=== PATIENT | male | born 1985 | race Caucasian/White ===

== ENCOUNTER 2020-11-02 04:35 | Observation (INO) | payer OTHER ==
[2020-11-02] MEDS ORDERED: Sodium Chloride 0.9% 1,000 ML IV ONE ×2 (04:58→06:50)
[2020-11-02] MEDS ORDERED: Sodium Chloride 0.9% 2.5 ML Syringe FLUSH PRN (04:58)
[2020-11-02] MEDS ORDERED: Sodium Chloride 0.9% 10 ML Syringe FLUSH PRN (04:58)
[2020-11-02] MEDS ORDERED: Pantoprazole 40 MG in Sodium Chloride 0.9% 10 ML IV ONE (04:58)
[2020-11-02] MEDS ORDERED: Ondansetron 4 MG/2 ML SDV IVPUSH ONE (04:58)
[2020-11-02 05:41] LABS: BLOOD UREA NITROGEN,BUN 41 mg/dL (7.0-18.0); CARBON DIOXIDE,CO2 27.1 mmol/L (21.0-32.0); CHLORIDE,CL 103 mmol/L (98-107); GLUCOSE RANDOM 100 mg/dL (74-106); LIPASE 136 U/L (73-393); POTASSIUM,K 3.8 mmol/L (3.5-5.1); SODIUM,NA 138 mmol/L (136-148)
--- NOTE | 2020-11-02 05:41 | CR ---
Indication: GI bleed Technique: Upright PA view of the chest. Upright and supine views of the abdomen Comparison: None Findings: The lungs are clear. There is no sizable pleural effusion or pneumothorax. The cardiomediastinal silhouette is normal. There is no free air under the diaphragm. There are no abnormal distended air-filled small bowel loops. No bowel air-fluid levels are demonstrated on upright view. Interspersed air and fecal material are noted in the colon. The visualized osseous structures are unremarkable. Impression: 1. No acute intrathoracic process. 2. Nonobstructive bowel gas pattern. 3. No pneumoperitoneum. Dictated by Roscoe Fish MD @ Nov 02 2020 5:38AM Signed by Dr. Roscoe Fish @ Nov 02 2020 5:38AM
--- NOTE | 2020-11-02 07:12 | EDM.PDOC ---
ED HPI GENERAL MEDICAL PROBLEM - General Chief Complaint: Abdominal Pain Stated Complaint: VOMITING BLOOD, Time Seen by Provider: 11/02/20 06:50 - History of Present Illness INITIAL COMMENTS - FREE TEXT/NARRATIVE: HISTORY AND PHYSICAL: History of present illness: This is a 35-year-old gentleman with no significant past medical history presents ER today complaining of an episode of dark stool earlier today followed by a significant amount of hematemesis this evening prior to arrival. Patient denies any recent fevers, shakes, chills, diarrhea, dysuria, frequency, urgency. Patient has any chest pain or shortness of breath. Patient denies any dizziness or presyncopal episodes. Patient denies any abdominal discomfort. Patient denies any history of hypertension, diabetes, liver, lung, kidney problems. Patient reports that he has had no abdominal surgeries in the past except for hernia repair as a child. Patient has no known drug allergies. Patient denies any tobacco or drug use but he does admit to daily alcohol use. Patient reports usually drinks 2 beers and a Ellis and Coke each night. Patient denies any other bleeding issues. Patient denies any easy bruising or bleeding from gums. Review of systems: As per history of present illness and below otherwise all systems reviewed and negative. Past medical history: As per history of present illness and as reviewed below otherwise noncontributory. Surgical history: As per history of present illness and as reviewed below otherwise noncontributory. Social history: No reported history of drug or alcohol abuse. Family history: As per history of present illness and as reviewed below otherwise noncontributory. Physical exam: This patient was seen and evaluated during the 2019 SARS-CoV-2 novel coronavirus pandemic period. Community viral transmission is ongoing at time of this encounter and the emergency department is operating under pandemic response procedures. Constitutional: Patient is oriented to person, place, and time. Appears well- developed and well-nourished. No distress. HEENT: Moist mucous membranes Head: Normocephalic and atraumatic, no pallor Eyes: Right eye exhibits no discharge. Left eye exhibits no discharge. No scleral icterus Neck: Normal range of motion. No tracheal deviation present. Cardiovascular: Normal rate and regular rhythm. Tachycardic at the Pulmonary: Effort normal, no respiratory distress. Abd: Soft, nondistended, no rebound/guarding, no psoas or obturator signs, no tenderness at Mcberney's point, no Borrego's sign. Pt does not present with an exam that would be consistent with an acute surgical abdomen at this time, nontender to palpation Musculoskeletal: Normal range of motion Neurologic: Alert and oriented to person, place and time. Skin: [place], warm and dry. Psychiatric: Normal mood and affect. Behavior is normal. Judgment and thought content normal. Nursing note and vital signs have been reviewed Rectal: Heme positive dark stool Diagnostics: Obstruction series: Nonspecific gas pattern, no free air or air-fluid levels as interpreted by ER Dr. Mena CBC/CMP within normal limits. INR normal. Coronavirus test negative Therapeutics: Protonix 40 mg IV NSS wide open x2 L Assessment and plan: This is a 35-year-old gentleman who presents to the ER today secondary to hematemesis and dark stools. On exam patient has heme positive stool and has shown me a picture of his bloody emesis. Patient's labs are all within normal limits. Patient is tachycardic here in the ED despite receiving volume resuscitation with NSS. Patient abdomen is benign and nontender and has not complained of any abdominal discomfort over the last several days. Given his melanotic stool, hematemesis, tachycardia, patient will need to be admitted to the hospital for serial H&H's. I have discussed the case with Dr. Trejo who is agreed to assist us with observation level of care for this patient. I have also discussed the case with Dr. Restrepo who agrees with the plan to admit patient here for further monitoring and possible endoscopy. Definitive disposition and diagnosis as appropriate pending reevaluation and review of above. - Related Data Allergies Allergy/AdvReac Type Severity Reaction Status Date / Time No Known Allergies Allergy Verified 11/02/20 04:48 Home Meds: Home Meds . [No Known Home Meds] 11/02/20 [History] Past Medical History - Past Health History Medical/Surgical History: Denies Medical/Surgical History - Infectious Disease History Infectious Disease History: Reports: Chicken Pox Social & Family History - Family History Family Medical History: No Pertinent Family History ED ROS GENERAL - Review of Systems Review Of Systems: See Below ED EXAM, GENERAL - Physical Exam Exam: See Below Course - Vital Signs Last Recorded V/S: Last Vital Signs Temp 98.3 F 11/02/20 04:35 Pulse 104 H 11/02/20 05:37 Resp 18 11/02/20 05:37 BP 141/96 H 11/02/20 05:37 Pulse Ox 95 11/02/20 05:37 - Orders/Labs/Meds Orders: Active Orders 24 hr Category Date Time Status Patient Status [ADT] Routine ADT 11/02/20 07:06 Ordered UA W/MILAGROS RFLX IF INDICATED [URIN] Stat Lab 11/02/20 04:59 Ordered Sodium Chloride 0.9% [Normal Saline] 1,000 ml Med 11/02/20 06:50 Active IV .Bolus Sodium Chloride 0.9% [Saline Flush] Med 11/02/20 04:58 Active 10 ml FLUSH ASDIRECTED PRN Sodium Chloride 0.9% [Saline Flush] Med 11/02/20 04:58 Active 2.5 ml FLUSH ASDIRECTED PRN Saline Lock Insert [OM.PC] Stat Oth 11/02/20 04:58 Ordered Medication Orders Sodium Chloride (Normal Saline) 1,000 mls @ 999 mls/hr IV .Bolus ONE Stop: 11/02/20 07:50 Sodium Chloride (Sodium Chloride 0.9% 10 Ml Syringe) 10 ml FLUSH ASDIRECTED PRN PRN Reason: Keep Vein Open Last Admin: 11/02/20 05:30 Dose: 10 ml Documented by: [email or web address] Sodium Chloride (Sodium Chloride 0.9% 2.5 Ml Syringe) 2.5 ml FLUSH ASDIRECTED PRN PRN Reason: Keep Vein Open Last Admin: 11/02/20 05:30 Dose: 2.5 ml Documented by: [id number] Labs: Laboratory Tests 11/02/20 11/02/20 11/02/20 Range/Units 04:54 04:54 04:54 WBC 10.71 (4.0-11.0) K/uL RBC 4.31 L (4.50-5.90) M/uL Hgb 13.4 (13.0-17.0) g/dL Hct 40.3 (38.0-50.0) % MCV 93.5 (80.0-98.0) fL MCH 31.1 (27.0-32.0) pg MCHC 33.3 (31.0-37.0) g/dL RDW Std Deviation 44.5 (28.0-62.0) fl RDW Coeff of Tracy 13 (11.0-15.0) % Plt Count 264 (150-400) K/uL MPV 11.30 (7.40-12.00) fL Neut % (Auto) 66.4 (48.0-80.0) % Lymph % (Auto) 23.5 (16.0-40.0) % Darke % (Auto) 6.8 (0.0-15.0) % Eos % (Auto) 2.9 (0.0-7.0) % Baso % (Auto) 0.4 (0.0-1.5) % Neut # (Auto) 7.1 H (1.4-5.7) K/uL Lymph # (Auto) 2.5 H (0.6-2.4) K/uL Darke # (Auto) 0.7 (0.0-0.8) K/uL Eos # (Auto) 0.3 (0.0-0.7) K/uL Baso # (Auto) 0.0 (0.0-0.1) K/uL Nucleated RBC % 0.0 /100WBC Nucleated RBCs # 0 K/uL INR 1.02 APTT 24.2 (18.6-31.3) SEC Sodium 138 (136-148) mmol/L Potassium 3.8 (3.5-5.1) mmol/L Chloride 103 (98-107) mmol/L Carbon Dioxide 27.1 (21.0-32.0) mmol/L BUN 41 H (7.0-18.0) mg/dL Creatinine 1.1 (0.8-1.3) mg/dL Est Cr Clr Drug Dosing 94.62 mL/min Estimated GFR (MDRD) > 60.0 ml/min Glucose 100 (74-106) mg/dL Calcium 9.0 (8.5-10.1) mg/dL Total Bilirubin 0.4 (0.2-1.0) mg/dL AST 24 (15-37) IU/L ALT 73 H (14-63) IU/L Alkaline Phosphatase 70 (46-116) U/L Total Protein 6.5 (6.4-8.2) g/dL Albumin 3.3 L (3.4-5.0) g/dL Globulin 3.2 (2.6-4.0) g/dL Albumin/Globulin Ratio 1.0 (0.9-1.6) Lipase 136 (73-393) U/L Ethyl Alcohol < 3.0 mg/dL SARS-CoV-2 RNA (EMIL) (NEGATIVE) 11/02/20 Range/Units 05:36 WBC (4.0-11.0) K/uL RBC (4.50-5.90) M/uL Hgb (13.0-17.0) g/dL Hct (38.0-50.0) % MCV (80.0-98.0) fL MCH (27.0-32.0) pg MCHC (31.0-37.0) g/dL RDW Std Deviation (28.0-62.0) fl RDW Coeff of Tracy (11.0-15.0) % Plt Count (150-400) K/uL MPV (7.40-12.00) fL Neut % (Auto) (48.0-80.0) % Lymph % (Auto) (16.0-40.0) % Darke % (Auto) (0.0-15.0) % Eos % (Auto) (0.0-7.0) % Baso % (Auto) (0.0-1.5) % Neut # (Auto) (1.4-5.7) K/uL Lymph # (Auto) (0.6-2.4) K/uL Darke # (Auto) (0.0-0.8) K/uL Eos # (Auto) (0.0-0.7) K/uL Baso # (Auto) (0.0-0.1) K/uL Nucleated RBC % /100WBC Nucleated RBCs # K/uL INR APTT (18.6-31.3) SEC Sodium (136-148) mmol/L Potassium (3.5-5.1) mmol/L Chloride (98-107) mmol/L Carbon Dioxide (21.0-32.0) mmol/L BUN (7.0-18.0) mg/dL Creatinine (0.8-1.3) mg/dL Est Cr Clr Drug Dosing mL/min Estimated GFR (MDRD) ml/min Glucose (74-106) mg/dL Calcium (8.5-10.1) mg/dL Total Bilirubin (0.2-1.0) mg/dL AST (15-37) IU/L ALT (14-63) IU/L Alkaline Phosphatase (46-116) U/L Total Protein (6.4-8.2) g/dL Albumin (3.4-5.0) g/dL Globulin (2.6-4.0) g/dL Albumin/Globulin Ratio (0.9-1.6) Lipase (73-393) U/L Ethyl Alcohol mg/dL SARS-CoV-2 RNA (EMIL) NEGATIVE (NEGATIVE) Meds: Medications Generic Name Dose Route Start Last Admin Trade Name Freq PRN Reason Stop Dose Admin Sodium Chloride 1,000 mls @ 999 mls/hr 11/02/20 06:50 Normal Saline IV 11/02/20 07:50 .Bolus ONE Sodium Chloride 10 ml 11/02/20 04:58 11/02/20 05:30 Sodium Chloride 0.9% 10 Ml Syringe FLUSH 10 ml ASDIRECTED PRN Administration Keep Vein Open Sodium Chloride 2.5 ml 11/02/20 04:58 11/02/20 05:30 Sodium Chloride 0.9% 2.5 Ml Syringe FLUSH 2.5 ml ASDIRECTED PRN Administration Keep Vein Open Discontinued Medications Generic Name Dose Route Start Last Admin Trade Name Freq PRN Reason Stop Dose Admin Sodium Chloride 1,000 mls @ 999 mls/hr 11/02/20 04:58 11/02/20 05:30 Normal Saline IV 11/02/20 05:58 999 mls/hr .Bolus ONE Administration Pantoprazole Sodium 40 mg/ 10 mls @ 300 mls/hr 11/02/20 04:58 11/02/20 05:30 Sodium Chloride IV 11/02/20 04:59 300 mls/hr NOW ONE Administration Ondansetron HCl 4 mg 11/02/20 04:58 11/02/20 05:30 Ondansetron 4 Mg/2 Ml Sdv IVPUSH 11/02/20 04:59 4 mg ONETIME ONE Administration Departure - Departure Time of Disposition: 07:12 Disposition: Refer to Observation Condition: Good Clinical Impression: GI bleed Qualifiers: GI bleed type/associated pathology: gastritis Gastritis type: other gastritis Qualified Code(s): K29.61 - Other gastritis with bleeding - Discharge Information Referrals: PCP,None [Primary Care Provider] - Sepsis Event Note (ED) - Evaluation Sepsis Screening Result: No Definite Risk - Focused Exam Vital Signs: Vital Signs Temp Pulse Resp BP Pulse Ox 11/02/20 05:37 104 H 18 141/96 H 95 11/02/20 04:35 98.3 F 120 H 18 170/110 H 96 - My Orders Last 24 Hours: My Active Orders 11/02/20 04:58 Sodium Chloride 0.9% [Saline Flush] 10 ml FLUSH ASDIRECTED PRN Sodium Chloride 0.9% [Saline Flush] 2.5 ml FLUSH ASDIRECTED PRN Saline Lock Insert [OM.PC] Stat 11/02/20 04:59 UA W/MILAGROS RFLX IF INDICATED [URIN] Stat 11/02/20 06:50 Sodium Chloride 0.9% [Normal Saline] 1,000 ml IV .Bolus 11/02/20 07:06 Patient Status [ADT] Routine - Assessment/Plan Last 24 Hours: My Active Orders 11/02/20 04:58 Sodium Chloride 0.9% [Saline Flush] 10 ml FLUSH ASDIRECTED PRN Sodium Chloride 0.9% [Saline Flush] 2.5 ml FLUSH ASDIRECTED PRN Saline Lock Insert [OM.PC] Stat 11/02/20 04:59 UA W/MILAGROS RFLX IF INDICATED [URIN] Stat 11/02/20 06:50 Sodium Chloride 0.9% [Normal Saline] 1,000 ml IV .Bolus 11/02/20 07:06 Patient Status [ADT] Routine
[2020-11-02] MEDS ORDERED: Ondansetron 4 MG/2 ML SDV IVPUSH PRN (08:35)
[2020-11-02] MEDS ORDERED: Albuterol/Ipratropium 3.0-0.5 MG/3 ML Neb Soln NEB PRN (08:35)
--- NOTE | 2020-11-02 08:38 | PCM.HP.2 ---
H&P History of Present Illness - General Date of Service: 11/02/20 Admit Problem/Dx: Admission Diagnosis/Problem Admission Diagnosis/Problem GI bleed not requiring more than 4 units of blood in 24 hours, ICU, or surgery - History of Present Illness Initial Comments - Free Text/Narative: This is a 35-year-old gentleman with no significant past medical history presents ER today complaining of an episode of dark stool yesterday followed by a significant amount of hematemesis last evening prior to arrival. Patient denies any recent fevers, shakes, chills, diarrhea, dysuria, frequency, urgency. Patient has any chest pain or shortness of breath. Patient denies any dizziness or presyncopal episodes. Patient denies any abdominal discomfort. Patient denies any history of hypertension, diabetes, liver, lung, kidney problems. Patient reports that he has had no abdominal surgeries in the past except for inguinal hernia repair as a child. Patient has no known drug allergies. Patient denies any tobacco or drug use but he does admit to daily alcohol use. Patient reports usually drinks 2 beers and a Ellis and Coke each night. Patient denies any other bleeding issues. Patient denies any easy bruising or bleeding from gums. Denied use of NSAIDS. In the ER patient oswald an other episode of hematemesis which was more significant that earlier one. Patient was tachycardic but BP was normal. Patients Hb was stable, he received aggressive IV fluids , IV PPI and was admitted to hospital for further management. - Related Data Allergies/Adverse Reactions: Allergies Allergy/AdvReac Type Severity Reaction Status Date / Time No Known Allergies Allergy Verified 11/02/20 04:48 Home Medications: Home Meds . [No Known Home Meds] 11/02/20 [History] Past Medical History - Past Health History Medical/Surgical History: Denies Medical/Surgical History - Infectious Disease History Infectious Disease History: Reports: Chicken Pox Social & Family History - Family History Family Medical History: No Pertinent Family History H&P Review of Systems - Review of Systems: Review Of Systems: See Below General: Reports: Malaise. Denies: Fever, Chills, Weakness, Fatigue Cardiovascular: Denies: Chest Pain, Palpitations, Dyspnea on Exertion Gastrointestinal: Reports: Black Stool, Bloody Stool, Nausea, Vomiting. Denies: Abdominal Pain, Anorexia, Constipation, Diarrhea, Decreased Appetite Genitourinary: Denies: Dysuria, Frequency Musculoskeletal: Denies: Neck Pain, Shoulder Pain Skin: Denies: Cyanosis, Jaundice, Mottled Psychiatric: Denies: Confusion, Depression, Mood Lability Neurological: Denies: Confusion, Dizziness, Headache Exam - Exam Exam: See Below - Vital Signs Vital Signs: Last Vital Signs Temp 36.8 C 11/02/20 04:35 Pulse 87 11/02/20 08:15 Resp 16 11/02/20 08:15 BP 137/93 H 11/02/20 08:15 Pulse Ox 98 11/02/20 08:15 Weight: 107.501 kg - Exam General: Alert, Oriented, Cooperative Neck: Supple, Trachea Midline Lungs: Clear to Auscultation, Normal Respiratory Effort Cardiovascular: Regular Rate, Regular Rhythm GI/Abdominal Exam: Normal Bowel Sounds, Soft, Non-Tender, No Organomegaly, No Distention. No: Distended, Guarding, Rigid, Hepatomegaly, Splenomegaly - Patient Data Lab Results Last 24 hrs: Laboratory Results - last 24 hr 11/02/20 11/02/20 11/02/20 Range/Units 04:54 04:54 04:54 WBC 10.71 (4.0-11.0) K/uL RBC 4.31 L (4.50-5.90) M/uL Hgb 13.4 (13.0-17.0) g/dL Hct 40.3 (38.0-50.0) % MCV 93.5 (80.0-98.0) fL MCH 31.1 (27.0-32.0) pg MCHC 33.3 (31.0-37.0) g/dL RDW Std Deviation 44.5 (28.0-62.0) fl RDW Coeff of Tracy 13 (11.0-15.0) % Plt Count 264 (150-400) K/uL MPV 11.30 (7.40-12.00) fL Neut % (Auto) 66.4 (48.0-80.0) % Lymph % (Auto) 23.5 (16.0-40.0) % [place] % (Auto) 6.8 (0.0-15.0) % Eos % (Auto) 2.9 (0.0-7.0) % Baso % (Auto) 0.4 (0.0-1.5) % Neut # (Auto) 7.1 H (1.4-5.7) K/uL Lymph # (Auto) 2.5 H (0.6-2.4) K/uL [place] # (Auto) 0.7 (0.0-0.8) K/uL Eos # (Auto) 0.3 (0.0-0.7) K/uL Baso # (Auto) 0.0 (0.0-0.1) K/uL Nucleated RBC % 0.0 /100WBC Nucleated RBCs # 0 K/uL INR 1.02 APTT 24.2 (18.6-31.3) SEC Sodium 138 (136-148) mmol/L Potassium 3.8 (3.5-5.1) mmol/L Chloride 103 (98-107) mmol/L Carbon Dioxide 27.1 (21.0-32.0) mmol/L BUN 41 H (7.0-18.0) mg/dL Creatinine 1.1 (0.8-1.3) mg/dL Est Cr Clr Drug Dosing 94.62 mL/min Estimated GFR (MDRD) > 60.0 ml/min Glucose 100 (74-106) mg/dL Calcium 9.0 (8.5-10.1) mg/dL Total Bilirubin 0.4 (0.2-1.0) mg/dL AST 24 (15-37) IU/L ALT 73 H (14-63) IU/L Alkaline Phosphatase 70 (46-116) U/L Total Protein 6.5 (6.4-8.2) g/dL Albumin 3.3 L (3.4-5.0) g/dL Globulin 3.2 (2.6-4.0) g/dL Albumin/Globulin Ratio 1.0 (0.9-1.6) Lipase 136 (73-393) U/L Ethyl Alcohol < 3.0 mg/dL SARS-CoV-2 RNA (EMIL) (NEGATIVE) 11/02/20 Range/Units 05:36 WBC (4.0-11.0) K/uL RBC (4.50-5.90) M/uL Hgb (13.0-17.0) g/dL Hct (38.0-50.0) % MCV (80.0-98.0) fL MCH (27.0-32.0) pg MCHC (31.0-37.0) g/dL RDW Std Deviation (28.0-62.0) fl RDW Coeff of Tracy (11.0-15.0) % Plt Count (150-400) K/uL MPV (7.40-12.00) fL Neut % (Auto) (48.0-80.0) % Lymph % (Auto) (16.0-40.0) % [place] % (Auto) (0.0-15.0) % Eos % (Auto) (0.0-7.0) % Baso % (Auto) (0.0-1.5) % Neut # (Auto) (1.4-5.7) K/uL Lymph # (Auto) (0.6-2.4) K/uL [place] # (Auto) (0.0-0.8) K/uL Eos # (Auto) (0.0-0.7) K/uL Baso # (Auto) (0.0-0.1) K/uL Nucleated RBC % /100WBC Nucleated RBCs # K/uL INR APTT (18.6-31.3) SEC Sodium (136-148) mmol/L Potassium (3.5-5.1) mmol/L Chloride (98-107) mmol/L Carbon Dioxide (21.0-32.0) mmol/L BUN (7.0-18.0) mg/dL Creatinine (0.8-1.3) mg/dL Est Cr Clr Drug Dosing mL/min Estimated GFR (MDRD) ml/min Glucose (74-106) mg/dL Calcium (8.5-10.1) mg/dL Total Bilirubin (0.2-1.0) mg/dL AST (15-37) IU/L ALT (14-63) IU/L Alkaline Phosphatase (46-116) U/L Total Protein (6.4-8.2) g/dL Albumin (3.4-5.0) g/dL Globulin (2.6-4.0) g/dL Albumin/Globulin Ratio (0.9-1.6) Lipase (73-393) U/L Ethyl Alcohol mg/dL SARS-CoV-2 RNA (EMIL) NEGATIVE (NEGATIVE) Result Diagrams: 11/02/20 04:54 11/02/20 04:54 Sepsis Event Note - Evaluation Sepsis Screening Result: No Definite Risk - Focused Exam Vital Signs: Vital Signs Temp Pulse Resp BP Pulse Ox 11/02/20 08:15 87 16 137/93 H 98 11/02/20 06:30 99 16 151/104 H 92 L 11/02/20 05:37 104 H 18 141/96 H 95 11/02/20 04:35 36.8 C 120 H 18 170/110 H 96 - Problem List (1) GI bleed SNOMED Code(s): 11278290 ICD Code: K92.2 - GASTROINTESTINAL HEMORRHAGE, UNSPECIFIED Status: Acute Current Visit: Yes Qualifiers: GI bleed type/associated pathology: gastritis Gastritis type: other gastritis Qualified Code(s): K29.61 - Other gastritis with bleeding (2) Gastrointestinal hemorrhage with melena SNOMED Code(s): 186921219 ICD Code: K92.1 - MELENA Status: Acute Current Visit: Yes Problem List Initiated/Reviewed/Updated: Yes Orders Last 24hrs: Active Orders 24 hr Category Date Time Status Patient Status [ADT] Routine ADT 11/02/20 07:06 Active Ambulate [RC] ASDIRECTED Care 11/02/20 08:35 Active Antiembolic Devices [RC] PER UNIT ROUTINE Care 11/02/20 08:36 Active Oxygen Therapy [RC] PRN Care 11/02/20 08:35 Active Pulse Oximetry [RC] PRN Care 11/02/20 08:36 Active RT Aerosol Therapy [RC] ASDIRECTED Care 11/02/20 08:37 Active VTE/DVT Education [RC] PER UNIT ROUTINE Care 11/02/20 08:35 Active Vital Signs [RC] Q4H Care 11/02/20 08:35 Active Full Liquid Diet [DIET] Diet 11/02/20 Breakfast Active UA W/MILAGROS RFLX IF INDICATED [URIN] Stat Lab 11/02/20 04:59 Ordered Albuterol/Ipratropium [DuoNeb 3.0-0.5 MG/3 ML] Med 11/02/20 08:35 Ordered 3 ml NEB Q4HRRT PRN Lactated Ringers @ 125 MLS/HR(1000ml) Med 11/02/20 08:45 Ordered Lactated Ringers [Ringers, Lactated] 1,000 ml IV ASDIRECTED Ondansetron [Zofran] Med 11/02/20 08:35 Ordered 4 mg IVPUSH Q4H PRN Pantoprazole [ProTONIX IV] Med 11/02/20 09:00 Ordered 40 mg IV Q12HR Sodium Chloride 0.9% [Saline Flush] Med 11/02/20 04:58 Active 10 ml FLUSH ASDIRECTED PRN Sodium Chloride 0.9% [Saline Flush] Med 11/02/20 04:58 Active 2.5 ml FLUSH ASDIRECTED PRN Saline Lock Insert [OM.PC] Stat Oth 11/02/20 04:58 Ordered Sequential Compression Device [OM.PC] Per Unit Routine Oth 11/02/20 08:36 Or dered Resuscitation Status Routine Resus Stat 11/02/20 08:35 Ordered Medication Orders Sodium Chloride (Sodium Chloride 0.9% 10 Ml Syringe) 10 ml FLUSH ASDIRECTED PRN PRN Reason: Keep Vein Open Last Admin: 11/02/20 05:30 Dose: 10 ml Documented by: RYAN Sodium Chloride (Sodium Chloride 0.9% 2.5 Ml Syringe) 2.5 ml FLUSH ASDIRECTED PRN PRN Reason: Keep Vein Open Last Admin: 11/02/20 05:30 Dose: 2.5 ml Documented by: RYAN Assessment/Plan Comment:: 35 y/o M admitted for GI bleeding Possible gastritis vs ulcer Surgery on board for EGD in AM Full Liquid diet for now, NPO Past midnight IV PPI BID Sucralfate Tylenol for pain IV Zofran for nausea IV fluids LR @ 125 cc/hr, tachycardia has resolved Ativan per CIWA as patient is a daily drinker
[2020-11-02] MEDS ORDERED: Pantoprazole 40 MG Vial IV SCH (09:00)
[2020-11-02] MEDS: Sucralfate Suspension 1 GM/10 ML Cup PO SCH ×3 (09:37→20:19)
[2020-11-02] MEDS: Lactated Ringers 1,000 ML IV SCH ×2 (09:37→17:20)
--- NOTE | 2020-11-02 10:08 | PCM.PREANE ---
Preanesthetic Assessment - Anesthesia/Transfusion/Family Hx Anesthesia History: Prior Anesthesia Without Reaction (Bilateral hernia repair at age 7.) Family History of Anesthesia Reaction: No Transfusion History: No Prior Transfusion(s) - Review of Systems General: No Symptoms Pulmonary: No Symptoms Cardiovascular: No Symptoms Gastrointestinal: Other (GI blleding with black stools) Neurological: No Symptoms Other: Reports: None - Physical Assessment Vital Signs: Last Vital Signs Temp 36.0 C L 11/02/20 08:55 Pulse 99 11/02/20 08:55 Resp 18 11/02/20 08:55 BP 130/89 11/02/20 08:55 Pulse Ox 96 11/02/20 08:55 Height: 1.75 m Weight: 107.501 kg ASA Class: 2 - Lab Values: Laboratory Last Values WBC 10.71 K/uL (4.0-11.0) 11/02/20 04:54 RBC 4.31 M/uL (4.50-5.90) L 11/02/20 04:54 Hgb 13.4 g/dL (13.0-17.0) 11/02/20 04:54 Hct 40.3 % (38.0-50.0) 11/02/20 04:54 MCV 93.5 fL (80.0-98.0) 11/02/20 04:54 MCH 31.1 pg (27.0-32.0) 11/02/20 04:54 MCHC 33.3 g/dL (31.0-37.0) 11/02/20 04:54 RDW Std Deviation 44.5 fl (28.0-62.0) 11/02/20 04:54 RDW Coeff of Tracy 13 % (11.0-15.0) 11/02/20 04:54 Plt Count 264 K/uL (150-400) 11/02/20 04:54 MPV 11.30 fL (7.40-12.00) 11/02/20 04:54 Neut % (Auto) 66.4 % (48.0-80.0) 11/02/20 04:54 Lymph % (Auto) 23.5 % (16.0-40.0) 11/02/20 04:54 [place] % (Auto) 6.8 % (0.0-15.0) 11/02/20 04:54 Eos % (Auto) 2.9 % (0.0-7.0) 11/02/20 04:54 Baso % (Auto) 0.4 % (0.0-1.5) 11/02/20 04:54 Neut # (Auto) 7.1 K/uL (1.4-5.7) H 11/02/20 04:54 Lymph # (Auto) 2.5 K/uL (0.6-2.4) H 11/02/20 04:54 [place] # (Auto) 0.7 K/uL (0.0-0.8) 11/02/20 04:54 Eos # (Auto) 0.3 K/uL (0.0-0.7) 11/02/20 04:54 Baso # (Auto) 0.0 K/uL (0.0-0.1) 11/02/20 04:54 Nucleated RBC % 0.0 /100WBC 11/02/20 04:54 Nucleated RBCs # 0 K/uL 11/02/20 04:54 INR 1.02 11/02/20 04:54 APTT 24.2 SEC (18.6-31.3) 11/02/20 04:54 Sodium 138 mmol/L (136-148) 11/02/20 04:54 Potassium 3.8 mmol/L (3.5-5.1) 11/02/20 04:54 Chloride 103 mmol/L (98-107) 11/02/20 04:54 Carbon Dioxide 27.1 mmol/L (21.0-32.0) 11/02/20 04:54 BUN 41 mg/dL (7.0-18.0) H 11/02/20 04:54 Creatinine 1.1 mg/dL (0.8-1.3) 11/02/20 04:54 Est Cr Clr Drug Dosing 94.62 mL/min 11/02/20 04:54 Estimated GFR (MDRD) > 60.0 ml/min 11/02/20 04:54 Glucose 100 mg/dL (74-106) 11/02/20 04:54 Calcium 9.0 mg/dL (8.5-10.1) 11/02/20 04:54 Total Bilirubin 0.4 mg/dL (0.2-1.0) 11/02/20 04:54 AST 24 IU/L (15-37) 11/02/20 04:54 ALT 73 IU/L (14-63) H 11/02/20 04:54 Alkaline Phosphatase 70 U/L (46-116) 11/02/20 04:54 Total Protein 6.5 g/dL (6.4-8.2) 11/02/20 04:54 Albumin 3.3 g/dL (3.4-5.0) L 11/02/20 04:54 Globulin 3.2 g/dL (2.6-4.0) 11/02/20 04:54 Albumin/Globulin Ratio 1.0 (0.9-1.6) 11/02/20 04:54 Lipase 136 U/L (73-393) 11/02/20 04:54 Ethyl Alcohol < 3.0 mg/dL 11/02/20 04:54 SARS-CoV-2 RNA (EMIL) NEGATIVE (NEGATIVE) 11/02/20 05:36 - Allergies Allergies/Adverse Reactions: Allergies Allergy/AdvReac Type Severity Reaction Status Date / Time No Known Allergies Allergy Verified 11/02/20 04:48 - Acknowledgements Anesthesia Type Planned: General Anesthesia Pt an Appropriate Candidate for the Planned Anesthesia: Yes Alternatives and Risks of Anesthesia Discussed w Pt/Guardian: Yes Pt/Guardian Understands and Agrees with Anesthesia Plan: Yes PreAnesthesia Questionnaire - Past Health History Medical/Surgical History: Denies Medical/Surgical History - Infectious Disease History Infectious Disease History: Reports: Chicken Pox - SUBSTANCE USE Tobacco Use Within Last Twelve Months: No - HOME MEDS Home Medications: Home Meds . [No Known Home Meds] 11/02/20 [History] - CURRENT (IN HOUSE) MEDS Current Meds: Current Medications Albuterol/Ipratropium (Albuterol/Ipratropium 3.0-0.5 Mg/3 Ml Neb Soln) 3 ml NEB Q4HRRT PRN PRN Reason: Shortness Of Breath/wheezing Lactated Ringer's (Ringers, Lactated) 1,000 mls @ 125 mls/hr IV Q8H JENNIFER Last Admin: 11/02/20 09:37 Dose: 125 mls/hr Documented by: Pantoprazole Sodium 40 mg/ (Sodium Chloride) 10 mls @ 200 mls/hr IV Q12H JENNIFER Ondansetron HCl (Ondansetron 4 Mg/2 Ml Sdv) 4 mg IVPUSH Q4H PRN PRN Reason: Nausea/Vomiting Sodium Chloride (Sodium Chloride 0.9% 10 Ml Syringe) 10 ml FLUSH ASDIRECTED PRN PRN Reason: Keep Vein Open Last Admin: 11/02/20 05:30 Dose: 10 ml Documented by: Sodium Chloride (Sodium Chloride 0.9% 2.5 Ml Syringe) 2.5 ml FLUSH ASDIRECTED PRN PRN Reason: Keep Vein Open Last Admin: 11/02/20 05:30 Dose: 2.5 ml Documented by: Sucralfate (Sucralfate Suspension 1 Gm/10 Ml Cup) 1 gm PO Q6H [facility] Last Admin: 11/02/20 09:37 Dose: 1 gm Documented by: Discontinued Medications Sodium Chloride (Normal Saline) 1,000 mls @ 999 mls/hr IV .Bolus ONE Stop: 11/02/20 05:58 Last Admin: 11/02/20 05:30 Dose: 999 mls/hr Documented by: Pantoprazole Sodium 40 mg/ (Sodium Chloride) 10 mls @ 300 mls/hr IV NOW ONE Stop: 11/02/20 04:59 Last Admin: 11/02/20 05:30 Dose: 300 mls/hr Documented by: Sodium Chloride (Normal Saline) 1,000 mls @ 999 mls/hr IV .Bolus ONE Stop: 11/02/20 07:50 Last Admin: 11/02/20 07:11 Dose: 999 mls/hr Documented by: Ondansetron HCl (Ondansetron 4 Mg/2 Ml Sdv) 4 mg IVPUSH ONETIME ONE Stop: 11/02/20 04:59 Last Admin: 11/02/20 05:30 Dose: 4 mg Documented by:
--- NOTE | 2020-11-02 11:11 | PCM.CONS ---
H&P History of Present Illness - General Date of Service: 11/02/20 Admit Problem/Dx: Admission Diagnosis/Problem Admission Diagnosis/Problem GI bleed not requiring more than 4 units of blood in 24 hours, ICU, or surgery Source of Information: Patient, Family History Limitations: Reports: No Limitations - History of Present Illness Initial Comments - Free Text/Narative: Patient is a 35-year-old gentleman who presented to the emergency room earlier today complaining of dark tarry stools and at least one episode of maroon emesis. He denies any fever or chills. This started yesterday. No unexplained weight loss. No prior history of peptic ulcer disease. Patient denies any food intolerances. Duration of Symptoms: Reports: Hour(s): Location: Reports: Abdomen Quality: Reports: Other (hematemesis and melena) Severity: Mild Improves with: Reports: None Worsens with: Reports: None Associated Symptoms: Reports: Nausea/Vomiting, Other (Melanotic stools) - Related Data Allergies/Adverse Reactions: Allergies Allergy/AdvReac Type Severity Reaction Status Date / Time No Known Allergies Allergy Verified 11/02/20 04:48 Home Medications: Home Meds . [No Known Home Meds] 11/02/20 [History] Past Medical History - Past Health History Medical/Surgical History: Denies Medical/Surgical History - Infectious Disease History Infectious Disease History: Reports: Chicken Pox - Past Surgical History GI Surgical History: Reports: Hernia, Inguinal (Bilateral) Social & Family History - Family History Family Medical History: No Pertinent Family History - Tobacco Use Tobacco Use Status *Q: Never Tobacco User - Alcohol Use Alcohol Use History: Yes Number of Drinks Per Day: 2 H&P Review of Systems - Review of Systems: Review Of Systems: See Below General: Denies: Fever, Chills, Malaise, Weakness, Fatigue, Decreased Appetite, Weight Loss HEENT: Reports: No Symptoms Pulmonary: Denies: Shortness of Breath, Wheezing Cardiovascular: Denies: Chest Pain, Palpitations Gastrointestinal: Reports: Black Stool, Hematemesis. Denies: Abdominal Pain, Anorexia, Constipation, Diarrhea, Decreased Appetite Genitourinary: Denies: Dysuria, Frequency, Burning, Pain, Urgency Musculoskeletal: Reports: No Symptoms Skin: Denies: Cyanosis, Jaundice, Mottled, Pallor, Diaphoresis Psychiatric: Denies: Confusion, Depression, Anxiety Neurological: Reports: No Symptoms Hematologic/Lymphatic: Denies: Anemia, Easy Bleeding Immunologic: Reports: No Symptoms Exam - Exam Exam: See Below - Vital Signs Vital Signs: Last Vital Signs Temp 96.8 F L 11/02/20 08:55 Pulse 99 11/02/20 08:55 Resp 18 11/02/20 08:55 BP 130/89 11/02/20 08:55 Pulse Ox 96 11/02/20 08:55 Weight: 237 lb - Exam Quality Assessment: No: Supplemental Oxygen, Central Line/PICC, Urinary Catheter General: Alert, Oriented, Cooperative HEENT: Conjunctiva Clear, Nares Patent, Pupils Equal, Pupils Reactive. No: Scleral Icterus Neck: Supple, Trachea Midline Lungs: Clear to Auscultation, Normal Respiratory Effort Cardiovascular: Regular Rate, Regular Rhythm, Normal S1, Normal S2, Tachycardia. No: Systolic Murmur, Diastolic Murmur GI/Abdominal Exam: Normal Bowel Sounds, Soft, Non-Tender, No Organomegaly Rectal (Males) Exam: Deferred (Done by emergency room staff), Heme + Stool Back Exam: Normal Inspection Extremities: Normal Inspection, Normal Range of Motion Peripheral Pulses: 4+: Posterior Tibial (L), Posterior Tibial (R), Dorsalis Pedis (L), Dorsalis Pedis (R) Skin: Warm, Dry, Intact Neurological: Cranial Nerves Intact Neuro Extensive - Mental Status: Alert, Oriented x3, Normal Mood/Affect Psychiatric: Alert, Normal Affect, Normal Mood - Patient Data Lab Results Last 24 hrs: Laboratory Results - last 24 hr 11/02/20 11/02/20 11/02/20 Range/Units 04:54 04:54 04:54 WBC 10.71 (4.0-11.0) K/uL RBC 4.31 L (4.50-5.90) M/uL Hgb 13.4 (13.0-17.0) g/dL Hct 40.3 (38.0-50.0) % MCV 93.5 (80.0-98.0) fL MCH 31.1 (27.0-32.0) pg MCHC 33.3 (31.0-37.0) g/dL RDW Std Deviation 44.5 (28.0-62.0) fl RDW Coeff of [place] 13 (11.0-15.0) % Plt Count 264 (150-400) K/uL MPV 11.30 (7.40-12.00) fL Neut % (Auto) 66.4 (48.0-80.0) % Lymph % (Auto) 23.5 (16.0-40.0) % [place] % (Auto) 6.8 (0.0-15.0) % Eos % (Auto) 2.9 (0.0-7.0) % Baso % (Auto) 0.4 (0.0-1.5) % Neut # (Auto) 7.1 H (1.4-5.7) K/uL Lymph # (Auto) 2.5 H (0.6-2.4) K/uL [place] # (Auto) 0.7 (0.0-0.8) K/uL Eos # (Auto) 0.3 (0.0-0.7) K/uL Baso # (Auto) 0.0 (0.0-0.1) K/uL Nucleated RBC % 0.0 /100WBC Nucleated RBCs # 0 K/uL INR 1.02 APTT 24.2 (18.6-31.3) SEC Sodium 138 (136-148) mmol/L Potassium 3.8 (3.5-5.1) mmol/L Chloride 103 (98-107) mmol/L Carbon Dioxide 27.1 (21.0-32.0) mmol/L BUN 41 H (7.0-18.0) mg/dL Creatinine 1.1 (0.8-1.3) mg/dL Est Cr Clr Drug Dosing 94.62 mL/min Estimated GFR (MDRD) > 60.0 ml/min Glucose 100 (74-106) mg/dL Calcium 9.0 (8.5-10.1) mg/dL Total Bilirubin 0.4 (0.2-1.0) mg/dL AST 24 (15-37) IU/L ALT 73 H (14-63) IU/L Alkaline Phosphatase 70 (46-116) U/L Total Protein 6.5 (6.4-8.2) g/dL Albumin 3.3 L (3.4-5.0) g/dL Globulin 3.2 (2.6-4.0) g/dL Albumin/Globulin Ratio 1.0 (0.9-1.6) Lipase 136 (73-393) U/L Urine Color Urine Appearance Urine pH (5.0-8.0) Ur Specific [place] (1.001-1.035) Urine Protein (NEGATIVE) mg/dL Urine Glucose (UA) (NEGATIVE) mg/dL Urine Ketones (NEGATIVE) mg/dL Urine Occult Blood (NEGATIVE) Urine Nitrite (NEGATIVE) Urine Bilirubin (NEGATIVE) Urine Urobilinogen (<2.0) EU/dL Ur Leukocyte Esterase (NEGATIVE) Ethyl Alcohol < 3.0 mg/dL SARS-CoV-2 RNA (EMIL) (NEGATIVE) 11/02/20 11/02/20 Range/Units 05:36 09:45 WBC (4.0-11.0) K/uL RBC (4.50-5.90) M/uL Hgb (13.0-17.0) g/dL Hct (38.0-50.0) % MCV (80.0-98.0) fL MCH (27.0-32.0) pg MCHC (31.0-37.0) g/dL RDW Std Deviation (28.0-62.0) fl RDW Coeff of [place] (11.0-15.0) % Plt Count (150-400) K/uL MPV (7.40-12.00) fL Neut % (Auto) (48.0-80.0) % Lymph % (Auto) (16.0-40.0) % [place] % (Auto) (0.0-15.0) % Eos % (Auto) (0.0-7.0) % Baso % (Auto) (0.0-1.5) % Neut # (Auto) (1.4-5.7) K/uL Lymph # (Auto) (0.6-2.4) K/uL [place] # (Auto) (0.0-0.8) K/uL Eos # (Auto) (0.0-0.7) K/uL Baso # (Auto) (0.0-0.1) K/uL Nucleated RBC % /100WBC Nucleated RBCs # K/uL INR APTT (18.6-31.3) SEC Sodium (136-148) mmol/L Potassium (3.5-5.1) mmol/L Chloride (98-107) mmol/L Carbon Dioxide (21.0-32.0) mmol/L BUN (7.0-18.0) mg/dL Creatinine (0.8-1.3) mg/dL Est Cr Clr Drug Dosing mL/min Estimated GFR (MDRD) ml/min Glucose (74-106) mg/dL Calcium (8.5-10.1) mg/dL Total Bilirubin (0.2-1.0) mg/dL AST (15-37) IU/L ALT (14-63) IU/L Alkaline Phosphatase (46-116) U/L Total Protein (6.4-8.2) g/dL Albumin (3.4-5.0) g/dL Globulin (2.6-4.0) g/dL Albumin/Globulin Ratio (0.9-1.6) Lipase (73-393) U/L Urine Color YELLOW Urine Appearance CLEAR Urine pH 6.0 (5.0-8.0) Ur Specific [place] 1.010 (1.001-1.035) Urine Protein NEGATIVE (NEGATIVE) mg/dL Urine Glucose (UA) NEGATIVE (NEGATIVE) mg/dL Urine Ketones NEGATIVE (NEGATIVE) mg/dL Urine Occult Blood NEGATIVE (NEGATIVE) Urine Nitrite NEGATIVE (NEGATIVE) Urine Bilirubin NEGATIVE (NEGATIVE) Urine Urobilinogen 0.2 (<2.0) EU/dL Ur Leukocyte Esterase NEGATIVE (NEGATIVE) Ethyl Alcohol mg/dL SARS-CoV-2 RNA (EMIL) NEGATIVE (NEGATIVE) Result Diagrams: 11/02/20 04:54 11/02/20 04:54 Sepsis Event Note - Evaluation Sepsis Screening Result: No Definite Risk - Focused Exam Vital Signs: Vital Signs Temp Pulse Resp BP Pulse Ox 11/02/20 08:55 96.8 F L 99 18 130/89 96 11/02/20 08:15 87 16 137/93 H 98 11/02/20 06:30 99 16 151/104 H 92 L 11/02/20 05:37 104 H 18 141/96 H 95 11/02/20 04:35 98.3 F 120 H 18 170/110 H 96 Consult PN Assessment/Plan (1) GI bleed SNOMED Code(s): 53260723 Code(s): K92.2 - GASTROINTESTINAL HEMORRHAGE, UNSPECIFIED Current Visit: Yes Qualifiers: GI bleed type/associated pathology: gastritis Gastritis type: other gastritis Qualified Code(s): K29.61 - Other gastritis with bleeding Problem List Initiated/Reviewed/Updated: Yes Plan: Esophagogastroduodenoscopy with biopsy. The operative procedure, along with the risks, including, but not limited to, bleeding, perforation, and the need for surgery were discussed with the patient who voices understanding, offers no questions and wishes to proceed.this will be scheduled for tomorrow, 11/03. Patient will be made nothing by mouth after midnight tonight.
[2020-11-02] MEDS ORDERED: LORazepam 2 MG/ML SDV IVPUSH PRN (13:38)
[2020-11-02] MEDS: Acetaminophen 325 MG Tab PO PRN ×2 (14:02→21:35)
[2020-11-02] MEDS: Pantoprazole 40 MG in Sodium Chloride 0.9% 10 ML IV SCH (17:21)
[2020-11-02] MEDS: amLODIPine 5 MG Tab PO SCH (20:19)
[2020-11-03] MEDS: Lactated Ringers 1,000 ML IV SCH ×2 (01:02→10:20)
[2020-11-03] MEDS: Sucralfate Suspension 1 GM/10 ML Cup PO SCH ×2 (03:07→08:47)
[2020-11-03] MEDS: Pantoprazole 40 MG in Sodium Chloride 0.9% 10 ML IV SCH (05:47)
[2020-11-03 06:40] LABS: BLOOD UREA NITROGEN,BUN 29 mg/dL (7.0-18.0); CARBON DIOXIDE,CO2 30.4 mmol/L (21.0-32.0); CHLORIDE,CL 106 mmol/L (98-107); GLUCOSE RANDOM 102 mg/dL (74-106); SODIUM,NA 140 mmol/L (136-148)
[2020-11-03] MEDS ORDERED: Propofol 200 MG/20 ML SDV ONE (07:00)
[2020-11-03] MEDS ORDERED: fentaNYL 100 MCG/2 ML SDV ONE (07:00)
--- NOTE | 2020-11-03 08:06 | PCM.OPNOTE ---
- General Post-Op/Procedure Note Date of Surgery/Procedure: 11/03/20 Operative Procedure(s): Esophagogastroduodenoscopy with antral biopsy Pre Op Diagnosis: Upper GI bleed with progressive anemia Post-Op Diagnosis: Distal esophageal ulcer that is not acutely bleeding. There is blood and clot in the stomach and duodenum. Anesthesia Technique: MAC (ASA IE) Primary Surgeon: Addi Restrepo Banking Specialist: Jasmine Justice Condition: Good Free Text/Narrative:: Intake & Output 11/02/20 11/03/20 11/03/20 19:59 03:59 11:59 Intake Total 1457 690 Output Total 350 980 Balance 1107 -290 DICTATION [id number] CPT CODE 60062
--- NOTE | 2020-11-03 08:07 | PCM.SN.2 ---
- Free Text/Narrative Note: Patient has what appears to be a distal esophageal ulcer. There does not appear to be any acute bleeding at the present time. Clot was noted in the proximal stomach. I was able to move this around and see that there was no ulcer underneath this. I think the patient would benefit from a longer stay in the hospital and recheck his hemoglobin this afternoon. Additionally, would consider adding a liquid antacid to the current treatment regimen. When the patient is discharged, I will need to see him back next week to discuss the pathology report from his antral biopsies.
[2020-11-03] MEDS ORDERED: Lactated Ringers 1,000 ML IV SCH (08:15)
--- NOTE | 2020-11-03 08:20 | PCM48HPAN ---
Post Anesthesia Note - EVALUATION WITHIN 48HRS OF ANESTHETIC Vital Signs in Normal Range: Yes Patient Participated in Evaluation: Yes Respiratory Function Stable: Yes Airway Patent: Yes Cardiovascular Function Stable: Yes Hydration Status Stable: Yes Pain Control Satisfactory: Yes Nausea and Vomiting Control Satisfactory: Yes Mental Status Recovered: Yes Vital Signs: Last Vital Signs Temp 98.1 F 11/03/20 04:00 Pulse 106 H 11/03/20 08:08 Resp 14 11/03/20 08:08 BP 108/81 11/03/20 08:08 Pulse Ox 96 11/03/20 08:08
--- NOTE | 2020-11-03 08:22 | PCM.POSTAN ---
POST ANESTHESIA ASSESSMENT - MENTAL STATUS Mental Status: Alert, Oriented - VITAL SIGNS Vital Signs: Last Vital Signs Temp 98.1 F 11/03/20 04:00 Pulse 106 H 11/03/20 08:08 Resp 14 11/03/20 08:08 BP 108/81 11/03/20 08:08 Pulse Ox 96 11/03/20 08:08 - RESPIRATORY Respiratory Status: Respiratory Rate WNL, Airway Patent, O2 Saturation Stable - CARDIOVASCULAR CV Status: Pulse Rate WNL, Blood Pressure Stable - GASTROINTESTINAL GI Status: No Symptoms - POST OP HYDRATION Hydration Status: Adequate & Stable
[2020-11-03] MEDS: amLODIPine 5 MG Tab PO SCH (08:47)
--- NOTE | 2020-11-03 10:08 | OR ---
SURGEON: Addi Restrepo M.D. DATE OF PROCEDURE: 11/03/2020 OPERATION PERFORMED: Esophagogastroduodenoscopy with biopsy. PRIMARY SURGEON: Addi Restrepo M.D. SALES FACILITATOR: CORBY Pearl student. ANESTHESIA: MAC. ASA CLASSIFICATION: IA. PREOPERATIVE DIAGNOSES: Upper gastrointestinal bleed with developing anemia. POSTOPERATIVE DIAGNOSIS: Distal esophageal ulcer. Mild chronic gastritis. DESCRIPTION OF PROCEDURE: The patient was taken to the endoscopy room and positioned on the endoscopy table in the supine position. Time-out was called for appropriate identification of patient and procedure. Monitored anesthesia care was provided. The bite block was placed between the patient's teeth. The gastroscope was inserted through the bite block into the oropharynx and advanced into the esophagus. Immediately, we did see some blood present in the esophagus. I was able to manipulate the gastroscope through the GE junction and stomach into the duodenum. Blood was seen all the way along the upper tract as far as I could insert the scope. I did not see any acute ulcerations in the duodenum. The gastroscope was withdrawn into the stomach, which did show some mild gastritis with no ulcerations and no ulcer craters. Antral biopsies were obtained to look for the presence of Helicobacter pylori. The gastroscope was retroflexed to visualize the proximal stomach. There was clot present in the cardia. I was able to irrigate this and clear that area, so there was no ulcer in the cardia. Retroflexed view of the proximal stomach was obtained. The gastroscope was then straightened and slowly withdrawn. There did appear to be an ulcer present in the distal esophagus at the GE junction. Again, no acute bleeding was noted, although I did notice hemoglobin dropped again from yesterday down to about 9.6 to 9.8. The esophagus itself demonstrated good contractility. The distal esophagus showed what appeared to be an ulcer. The mid esophagus and proximal esophagus demonstrated good contractility. No lesions were identified. The vocal cords were briefly visualized as the scope was withdrawn. No vocal cord lesions were identified, and the vocal cords appeared to move symmetrically. The gastroscope was then removed with the patient having tolerated the procedure well. He was taken to recovery room in stable condition. ANDANCA / MODL /[id number] [facility]OSPITALEdith
[2020-11-03] MEDS ORDERED: Aluminum Hydroxide/Magnesium Hydroxide/Simethicone Susp 30 ML Cup PO PRN (11:00)
[2020-11-03] MEDS ORDERED: Benzocaine/Cetylpyridinium/Menthol Lozenge MUCMEM PRN (11:00)
--- NOTE | 2020-11-03 12:56 | PCM.DCSUM1 ---
Discharge Summary - Hospital Course Diagnosis: Stroke: No - Discharge Data Discharge Disposition: Home, Self-Care 01 Condition: Good - Referral to Home Health Primary Care Physician: PCP None - Discharge Diagnosis/Problem(s) (1) GI bleed SNOMED Code(s): 49583867 ICD Code: K92.2 - GASTROINTESTINAL HEMORRHAGE, UNSPECIFIED Status: Acute Current Visit: Yes Qualifiers: GI bleed type/associated pathology: gastritis Gastritis type: other gastritis Qualified Code(s): K29.61 - Other gastritis with bleeding (2) Gastrointestinal hemorrhage with melena SNOMED Code(s): 800899926 ICD Code: K92.1 - MELENA Status: Acute Current Visit: Yes - Patient Summary/Data Operative Procedure(s) Performed: Esophagogastroduodenoscopy with antral biopsy - Patient Instructions Diet: Heart Healthy Diet, GI Soft/Low Residue/Low Fiber Activity: As Tolerated Driving: May Drive Today Showering/Bathing: May Shower Notify Provider of: Fever, Increased Pain, Swelling and Redness, Nausea and/or Vomiting - Discharge Plan *PRESCRIPTION DRUG MONITORING PROGRAM REVIEWED*: No *COPY OF PRESCRIPTION DRUG MONITORING REPORT IN PATIENT ROBERTO: No Prescriptions/Med Rec: Sucralfate [Carafate] 1 gm PO DAILY #5 cup Alum Hydrox/Mag Hydrox/Simeth [Mag-Al Plus] 30 ml PO Q6H PRN #20 cup PRN Reason: Dyspepsia amLODIPine [Norvasc] 5 mg PO DAILY #30 tablet Pantoprazole [ProTONIX] 40 mg PO DAILY #30 tab.cr Ondansetron [Zofran ODT] 4 mg PO Q6H PRN #12 tab.dis PRN Reason: Nausea/Vomiting Home Medications: Home Meds Alum Hydrox/Mag Hydrox/Simeth [Mag-Al Plus] 30 ml PO Q6H PRN #20 cup 11/03/20 [Rx] Ondansetron [Zofran ODT] 4 mg PO Q6H PRN #12 tab.dis 11/03/20 [Rx] Pantoprazole [ProTONIX] 40 mg PO DAILY #30 tab.cr 11/03/20 [Rx] Sucralfate [Carafate] 1 gm PO DAILY #5 cup 11/03/20 [Rx] amLODIPine [Norvasc] 5 mg PO DAILY #30 tablet 11/03/20 [Rx] Forms: ED Department Discharge Referrals: Addi Restrepo MD [Physician] - 11/11/20 10:15 am Moisés Mcintosh MD [Ordering Only Provider] - 11/08/20 9:00 am - Patient Data Vitals - Most Recent: Last Vital Signs Temp 36.6 C 11/03/20 08:04 Pulse 106 H 11/03/20 08:08 Resp 14 11/03/20 08:08 BP 113/85 11/03/20 08:47 Pulse Ox 98 11/03/20 09:00 Weight - Most Recent: 106.849 kg I&O - Last 24 hours: Intake & Output 11/02/20 11/03/20 11/03/20 22:59 06:59 14:59 Intake Total 957 680 810 Output Total 980 Balance 957 -300 810 Lab Results - Last 24 hrs: Laboratory Results - last 24 hr 11/02/20 11/02/20 11/02/20 Range/Units 04:54 14:00 14:00 WBC (4.0-11.0) K/uL RBC (4.50-5.90) M/uL Hgb 11.1 L (13.0-17.0) g/dL Hct 33.8 L (38.0-50.0) % MCV (80.0-98.0) fL MCH (27.0-32.0) pg MCHC (31.0-37.0) g/dL RDW Std Deviation (28.0-62.0) fl RDW Coeff of Tracy (11.0-15.0) % Plt Count (150-400) K/uL MPV (7.40-12.00) fL Neut % (Auto) (48.0-80.0) % Lymph % (Auto) (16.0-40.0) % Bladen % (Auto) (0.0-15.0) % Eos % (Auto) (0.0-7.0) % Baso % (Auto) (0.0-1.5) % Neut # (Auto) (1.4-5.7) K/uL Lymph # (Auto) (0.6-2.4) K/uL Bladen # (Auto) (0.0-0.8) K/uL Eos # (Auto) (0.0-0.7) K/uL Baso # (Auto) (0.0-0.1) K/uL Nucleated RBC % /100WBC Nucleated RBCs # K/uL Sodium (136-148) mmol/L Potassium (3.5-5.1) mmol/L Chloride (98-107) mmol/L Carbon Dioxide (21.0-32.0) mmol/L BUN (7.0-18.0) mg/dL Creatinine (0.8-1.3) mg/dL Est Cr Clr Drug Dosing mL/min Estimated GFR (MDRD) ml/min Glucose (74-106) mg/dL Hemoglobin A1c 5.0 (4.5 - 6.2) % Calcium (8.5-10.1) mg/dL Phosphorus (2.6-4.7) mg/dL Magnesium (1.8-2.4) mg/dL Triglycerides 195 (0-200) mg/dL Cholesterol 170 (50-200) mg/dL LDL Cholesterol, Calc 100 (60-180) mg/dL VLDL Cholesterol 39 (5-55) mg/dL HDL Cholesterol 31 L (40-60) mg/dL Cholesterol/HDL Ratio 5.5 (3.3-6.0) TSH 3rd Generation 2.61 (0.36-3.74) uIU/mL 11/02/20 11/03/20 11/03/20 Range/Units 21:03 05:40 05:40 WBC 9.23 (4.0-11.0) K/uL RBC 2.98 L (4.50-5.90) M/uL Hgb 10.6 L 9.3 L (13.0-17.0) g/dL Hct 31.8 L 28.2 L (38.0-50.0) % MCV 94.6 (80.0-98.0) fL MCH 31.2 (27.0-32.0) pg MCHC 33.0 (31.0-37.0) g/dL RDW Std Deviation 45.2 (28.0-62.0) fl RDW Coeff of Tracy 13 (11.0-15.0) % Plt Count 227 (150-400) K/uL MPV 11.00 (7.40-12.00) fL Neut % (Auto) 70.2 (48.0-80.0) % Lymph % (Auto) 19.4 (16.0-40.0) % Bladen % (Auto) 7.0 (0.0-15.0) % Eos % (Auto) 2.9 (0.0-7.0) % Baso % (Auto) 0.5 (0.0-1.5) % Neut # (Auto) 6.5 H (1.4-5.7) K/uL Lymph # (Auto) 1.8 (0.6-2.4) K/uL Bladen # (Auto) 0.7 (0.0-0.8) K/uL Eos # (Auto) 0.3 (0.0-0.7) K/uL Baso # (Auto) 0.1 (0.0-0.1) K/uL Nucleated RBC % 0.0 /100WBC Nucleated RBCs # 0 K/uL Sodium 140 (136-148) mmol/L Potassium 4.0 (3.5-5.1) mmol/L Chloride 106 (98-107) mmol/L Carbon Dioxide 30.4 (21.0-32.0) mmol/L BUN 29 H (7.0-18.0) mg/dL Creatinine 0.9 (0.8-1.3) mg/dL Est Cr Clr Drug Dosing 115.65 mL/min Estimated GFR (MDRD) > 60.0 ml/min Glucose 102 (74-106) mg/dL Hemoglobin A1c (4.5 - 6.2) % Calcium 7.9 L (8.5-10.1) mg/dL Phosphorus 2.8 (2.6-4.7) mg/dL Magnesium 1.9 (1.8-2.4) mg/dL Triglycerides (0-200) mg/dL Cholesterol (50-200) mg/dL LDL Cholesterol, Calc (60-180) mg/dL VLDL Cholesterol (5-55) mg/dL HDL Cholesterol (40-60) mg/dL Cholesterol/HDL Ratio (3.3-6.0) TSH 3rd Generation (0.36-3.74) uIU/mL Med Orders - Current: Current Medications Acetaminophen (Acetaminophen 325 Mg Tab) 650 mg PO Q6H PRN PRN Reason: Headache Last Admin: 11/02/20 21:35 Dose: 650 mg Documented by: Al Hydroxide/Mg Hydroxide (Aluminum Hydroxide/Magnesium Hydroxide/Simethicone Susp 30 Ml Cup) 30 ml PO Q4H PRN PRN Reason: Abdominal Pain Albuterol/Ipratropium (Albuterol/Ipratropium 3.0-0.5 Mg/3 Ml Neb Soln) 3 ml NEB Q4HRRT PRN PRN Reason: Shortness Of Breath/wheezing Amlodipine Besylate (Amlodipine 5 Mg Tab) 5 mg PO DAILY [facility] Last Admin: 11/03/20 08:47 Dose: 5 mg Documented by: Benzocaine/Menthol (Benzocaine/Cetylpyridinium/Menthol Lozenge) 1 lozenge MUCMEM Q2H PRN PRN Reason: Sore Throat Lactated Ringer's (Ringers, Lactated) 1,000 mls @ 125 mls/hr IV Q8H [facility] Last Admin: 11/03/20 10:20 Dose: 125 mls/hr Documented by: Pantoprazole Sodium 40 mg/ (Sodium Chloride) 10 mls @ 200 mls/hr IV Q12H [facility] Last Admin: 11/03/20 05:47 Dose: 200 mls/hr Documented by: Lactated Ringer's (Ringers, Lactated) 1,000 mls @ 125 mls/hr IV ASDIRECTED [facility] Lorazepam (Lorazepam 2 Mg/Ml Sdv) 0 mg IVPUSH Q6H PRN; Protocol PRN Reason: Withdrawal Symptoms Last Admin: 11/02/20 21:37 Dose: 1 mg Documented by: Ondansetron HCl (Ondansetron 4 Mg/2 Ml Sdv) 4 mg IVPUSH Q4H PRN PRN Reason: Nausea/Vomiting Last Admin: 11/02/20 21:37 Dose: 4 mg Documented by: Sodium Chloride (Sodium Chloride 0.9% 10 Ml Syringe) 10 ml FLUSH ASDIRECTED PRN PRN Reason: Keep Vein Open Last Admin: 11/02/20 05:30 Dose: 10 ml Documented by: Sodium Chloride (Sodium Chloride 0.9% 2.5 Ml Syringe) 2.5 ml FLUSH ASDIRECTED PRN PRN Reason: Keep Vein Open Last Admin: 11/02/20 05:30 Dose: 2.5 ml Documented by: Sucralfate (Sucralfate Suspension 1 Gm/10 Ml Cup) 1 gm PO Q6H JENNIFER Last Admin: 11/03/20 08:47 Dose: 1 gm Documented by: Discontinued Medications Fentanyl (Fentanyl 100 Mcg/2 Ml Sdv) Confirm Administered Dose 100 mcg .ROUTE .STK-MED ONE Stop: 11/03/20 07:01 Sodium Chloride (Normal Saline) 1,000 mls @ 999 mls/hr IV .Bolus ONE Stop: 11/02/20 05:58 Last Admin: 11/02/20 05:30 Dose: 999 mls/hr Documented by: Pantoprazole Sodium 40 mg/ (Sodium Chloride) 10 mls @ 300 mls/hr IV NOW ONE Stop: 11/02/20 04:59 Last Admin: 11/02/20 05:30 Dose: 300 mls/hr Documented by: Sodium Chloride (Normal Saline) 1,000 mls @ 999 mls/hr IV .Bolus ONE Stop: 11/02/20 07:50 Last Admin: 11/02/20 07:11 Dose: 999 mls/hr Documented by: Lidocaine HCl (Lidocaine 1% 5 Ml Sdv) Confirm Administered Dose 10 ml .ROUTE .STK-MED ONE Stop: 11/03/20 06:59 Ondansetron HCl (Ondansetron 4 Mg/2 Ml Sdv) 4 mg IVPUSH ONETIME ONE Stop: 11/02/20 04:59 Last Admin: 11/02/20 05:30 Dose: 4 mg Documented by: Propofol (Propofol 200 Mg/20 Ml Sdv) Confirm Administered Dose 400 mg .ROUTE .STK-MED ONE Stop: 11/03/20 07:01
== END 2020-11-03 14:45 | disposition home or self-care (01) ==
LOC: MW.ED 04:35 → MW.ICU 07:06 → MW.MS 14:23
PROVIDERS: ADMIT Student in an Organized Health Care Education/Training Program; ATTEND Student in an Organized Health Care Education/Training Program
DX: K29.51 Unspecified chronic gastritis with bleeding (principal); K22.10 Ulcer of esophagus without bleeding; D64.9 Anemia, unspecified; Z01.812 Encounter for preprocedural laboratory examination; Z20.822 Contact with and (suspected) exposure to COVID-19; Z79.899 Other long term (current) drug therapy; Z98.890 Other specified postprocedural states
CPT/HCPCS: 36415; 43239; 74022; 80048; 80053; 80061; 80307; 81003; 83036; 83690; 83735; 84100; 84443; 85014; 85018; 85025; 85610; 85730; 87635; 96374; 96375; 96376; 99285; A9270; C9113; G0378; J2060; J2405; J2704; J3010; J7030; J7120; 99283; U0002